=== PATIENT | male | born 1985 ===

== ENCOUNTER 2023-05-02 21:05 | Emergency (ER) | payer OTHER ==
[~2023-05-02] VITALS: Ht 177.8 cm; Wt 84.1 kg
[2023-05-02 22:43] VITALS: BP 137/57; PULSE 67; RESP 18
== END 2023-05-03 00:07 | disposition home or self-care (01) ==
LOC: EMS 21:27 → EDBD 21:27 → EMS 05-03 00:07
DX: S00.83XA Contusion of other part of head, initial encounter (principal); F17.210 Nicotine dependence, cigarettes, uncomplicated; F12.90 Cannabis use, unspecified, uncomplicated; Y04.8XXA Assault by other bodily force, initial encounter; Y93.89 Activity, other specified; Y92.89 Other specified places as the place of occurrence of the external cause; Y99.8 Other external cause status
CPT/HCPCS: 99283; Z7502